=== PATIENT | female | born 1990 | race Caucasian/White ===

== ENCOUNTER 2022-05-17 14:30 | Outpatient (RCR) | payer OTHER, SELFPAY | END 2022-06-15 14:24 | disposition home or self-care (01) | LOC: HO.WCC 14:30 | PROVIDERS: Visit Provider Surgery | DX: S91.012A Laceration without foreign body, left ankle, initial encounter (principal); R60.0 Localized edema; R20.8 Other disturbances of skin sensation; Z79.899 Other long term (current) drug therapy | CPT/HCPCS: 11042; 99212; 99213 ==